=== PATIENT | female | born 1980 | race Caucasian/White ===

== ENCOUNTER 2016-06-27 17:06 | Emergency (ER) | payer MEDICAID ==
[2013-11-11 04:04] VITALS: BMI 60.4
[~2016-06-27 17:06] MED LIST: CIPRO500 MG OR; COLACE100 MG; GAS-X80 MG OR; IBUPROFEN600 MG PO; MACROBID100 MG PO; PERCOCET 5-3251 TAB PO
== END 2016-06-27 19:57 | disposition home or self-care (01) ==
LOC: D.ER 17:06
DX: R51 Headache (principal); E86.0 Dehydration; F41.9 Anxiety disorder, unspecified

== ENCOUNTER → 2016-06-28 11:19 | Outpatient (CLI) | payer MEDICAID ==
[2013-11-11 04:04] VITALS: BMI 60.4
== END | disposition home or self-care (01) ==
LOC: D.CT 11:19
DX: R51 Headache (principal)

== ENCOUNTER 2016-08-13 21:34 | Emergency (ER) | payer MEDICAID ==
[2013-11-11 04:04] VITALS: BMI 60.4
[2016-08-14 00:35] LABS: HEMATOCRIT 41.3 % (36.0-48.0); HEMOGLOBIN 13.5 g/dL (12-16); LYMPHOCYTES 21.3 % (15-50); MCH 26.7 pg (26.0-34.0); MCHC 32.7 g/dL (31.0-37.0); MCV 81.8 fL (80.0-100.0); NEUTROPHILS 72.4 % (40-80); PLATELET COUNT 246 10x3/uL (130-400); RBC 5.05 10x6/uL (4.00-5.40); RDW 15.3 % (11.5-14.5); WBC 14.6 10x3/uL (4.8-10.8)
== END 2016-08-14 00:47 | disposition home or self-care (01) ==
LOC: D.ER 21:34
PROVIDERS: Emergency Medicine
DX: R42 Dizziness and giddiness (principal)

== ENCOUNTER 2016-10-12 21:22 | Emergency (ER) | payer MEDICAID ==
[2013-11-11 04:04] VITALS: BMI 60.4
== END 2016-10-13 00:22 | disposition home or self-care (01) ==
LOC: D.ER 21:22
DX: S39.012A Strain of muscle, fascia and tendon of lower back, initial encounter (principal); W01.0XXA Fall on same level from slipping, tripping and stumbling without subsequent striking against object, initial encounter; Y93.89 Activity, other specified; Y92.512 Supermarket, store or market as the place of occurrence of the external cause; S80.02XA Contusion of left knee, initial encounter

== ENCOUNTER 2018-03-19 19:46 | Emergency (ER) | payer MEDICAID ==
[~2018-03-19] VITALS: Ht 154.9 cm; Wt 147.7 kg
[2018-03-19 20:03] VITALS: Ht 154.9 cm; Wt 147.7 kg
[2018-03-19] MEDS ORDERED: GLUCOPHAGE500 MG PO (20:04)
[2018-03-19] MEDS ORDERED: PRINZIDE 20/12.1 TA1 PO (20:04)
[2018-03-19] MEDS ORDERED: COMPAZINE5 MG PO (21:50)
[2018-03-19] MEDS ORDERED: BUTALB-APAP-CA1 EACH PO (21:50)
[2018-03-19 22:40] VITALS: BP 108/72
== END 2018-03-19 22:40 | disposition home or self-care (01) ==
LOC: D.ER 19:46
DX: G43.909 Migraine, unspecified, not intractable, without status migrainosus (principal)

== ENCOUNTER → 2018-08-04 14:05 | Outpatient (CLI) | payer MEDICAID ==
[2018-03-19 20:03] VITALS: BMI 61.5
[~2018-08-04 14:05] MED LIST changes: +BUTALB-APAP-CA1 EACH PO; +COMPAZINE5 MG PO; +GLUCOPHAGE500 MG PO; +PRINZIDE 20/12.1 TA1 PO
== END | disposition home or self-care (01) ==
LOC: D.US 14:05
PROVIDERS: ATTEND Family Medicine
DX: N39.0 Urinary tract infection, site not specified (principal)

== ENCOUNTER 2019-06-21 21:42 | Emergency (ER) | payer MEDICAID ==
[~2019-06-21] VITALS: Ht 154.9 cm; Wt 120.5 kg
[2019-06-21 21:47] VITALS: Ht 154.9 cm; Wt 120.5 kg
[2019-06-21] MEDS ORDERED: CYCLOBENZAPRINE10 MG PO (22:30)
[2019-06-21] MEDS ORDERED: DICLOFENAC SODI50 MG PO (22:30)
[2019-06-21 23:54] VITALS: BP 123/72
== END 2019-06-21 23:05 | disposition home or self-care (01) ==
LOC: D.ER 21:42
DX: M54.42 Lumbago with sciatica, left side (principal); J45.909 Unspecified asthma, uncomplicated